=== PATIENT | male | born 1970 | race Caucasian/White ===

== ENCOUNTER 2021-03-07 17:57 | Emergency (ER) | payer MEDICARE ==
[~2021-03-07] VITALS: Ht 170.2 cm; Wt 113.6 kg
[~2021-03-07 17:57] MED LIST: AMBIEN10 MG PO; ATIVAN2 MG PO; CELEXA40 MG PO; DILAUDID8 MG PO; DUONEB 2.5-0.5 M3 ML UPD; FLOMAX0.4 MG PO; LAMICTAL100 MG PO; METHADOSE10 MG PO; PERCOCET 10/3251 TA1 PO; PRAVACHOL40 MG PO; PROVENTIL HFA6.7 GM INH; ZANTAC150 MG PO; ZIAC 5/6.25 MG1 TAB PO
[2021-03-07 18:10] VITALS: Ht 170.2 cm; Wt 113.6 kg
[2021-03-07] MEDS ORDERED: HYDROCODON-ACE1 EAC7 PO (20:10)
[2021-03-07] MEDS ORDERED: DICLOFENAC SODI50 MG PO ×2 (20:10→20:21)
[2021-03-07 21:03] VITALS: BP 155/102
== END 2021-03-07 21:03 | disposition home or self-care (01) ==
LOC: D.ER 17:57
DX: M25.571 Pain in right ankle and joints of right foot (principal); V29.9XXA Motorcycle rider (driver) (passenger) injured in unspecified traffic accident, initial encounter; Y93.9 Activity, unspecified; Y92.9 Unspecified place or not applicable; I10 Essential (primary) hypertension; Z72.0 Tobacco use

== ENCOUNTER → 2021-03-28 14:45 | Outpatient (CLI) | payer MEDICARE ==
[2021-03-07 18:10] VITALS: BMI 39.2
[~2021-03-28 14:45] MED LIST changes: +DICLOFENAC SODI50 MG PO; +HYDROCODON-ACE1 EAC7 PO
== END | disposition home or self-care (01) ==
LOC: D.CT 14:30
PROVIDERS: ATTEND Clinical Nurse Specialist Family Health
DX: M25.571 Pain in right ankle and joints of right foot (principal)